=== PATIENT | male | born 1940 | race Caucasian/White ===

== ENCOUNTER 2019-08-28 19:17 | Emergency (ER) | payer MEDICARE, SELFPAY ==
--- NOTE | ~2019-08-28 | CT_ITS ---
EXAMINATION: CTA chest abdomen pelvis EXAM DATE: 08/28/2019 21:23 INDICATION: Hypotension, diaphoresis. Clinical concern for dissection. TECHNIQUE: Spiral CT of the chest, abdomen and pelvis was performed following intravenous injection o f 100 mL Omnipaque 350. Axial, coronal and sagittal images were reviewed. Maximum intensity projecti on 3-D reconstructions of the arteries were created by the technologist on dedicated workstation. C oronal maximum intensity pixel images of chest reviewed. The dose-length product (DLP) for this exam ination was 1629.10 mGy-cm. The exposure was tailored according to patient size (auto mA exposure co ntrol), and iterative reconstruction (ASIR) was used as additional dose reduction technique. There i s no prior study for comparison. FINDINGS: The thoracic and abdominal aorta is normal in caliber. There is no dissection. There is mil d to moderate scattered arteriosclerotic disease. SMA, renal arteries, celiac artery, PALLAVI are widely patent. 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 CHEST: There is a 6 mm left lower lobe posterior sulcus nodule on axial image 85 without spiculation s. More likely granuloma than cancer but a follow-up low-dose chest CT is recommended in 6 months. Mi ld dependent atelectasis. The lungs are otherwise clear. There are no pleural or pericardial effusi ons. Tracheobronchial tree is patent. There is no mediastinal, hilar or axillary lymphadenopathy. There is no pneumothorax. Cardiomegaly. There is moderate coronary arterial calcification, vernon rial sclerosis. ABDOMEN PELVIS: The liver, spleen, adrenal glands and pancreas are unremarkable. Gallbladder is unre markable. No biliary obstruction. Portal and splenic veins are patent. Kidneys enhance symmetrical ly. There is no hydronephrosis. The prostate is unremarkable. There is a 3 cm right posterolatera l bladder diverticulum. There is no retroperitoneal or pelvic lymphadenopathy. Small bilateral fat -containing inguinal hernias. The appendix is normal. The stomach and small bowel are unremarkable. There is expected amount of c olonic stool. There is mild sigmoid colonic diverticulosis. There is no adjacent inflammatory change to suggest diverticulitis. No free intraperitoneal gas. There are no osteoblastic or osteolytic l esions identified. Chronic bilateral L5 spondylolysis with grade 1 anterolisthesis L5 on S1. IMPRESSION: 1. No aortic aneurysm or dissection. No acute findings identified. 2. Left basilar nodule; recommend 6 month follow-up low-dose chest CT. 3. Small bladder diverticulum. 4. Mild sigmoid diverticulosis. 5. Cardiomegaly. Reviewed, dictated and finalized at location A. RESPIRATORY
--- NOTE | ~2019-08-28 | CT_ITS ---
EXAMINATION: CT brain wo con EXAM DATE: 08/28/2019 21:22 INDICATION: Right leg paresthesia. Hypertension, diaphoresis. TECHNIQUE: Spiral CT of the head was performed without contrast. Axial, coronal and sagittal images were reviewed. The dose-length product (DLP) for this examination was 681.00 mGy-cm. The exposure w as tailored according to patient size, and iterative reconstruction (ASIR) was used as additional dos e reduction technique. There is no prior study for comparison. FINDINGS: There is no acute intraparenchymal hemorrhage. No evidence of intraparenchymal brain mass lesion. No evidence of acute infarction. Please note that initial head CT has limited sensitivity f or small or acute infarctions. There is mild periventricular and subcortical hypodensity, nonspecific but probably related to small vessel ischemic disease. There is mild prominence of the sulci and v entricles related to cerebral atrophy. There is intracranial carotid arteriosclerosis. There are n o extra-axial collections. There is no mass effect or midline shift. The orbits are unremarkable. Soft tissue is unremarkable. The visualized sinuses and mastoid air cells are well aerated. IMPRESSION: 1. No acute intracranial findings. 2. Chronic age related findings. Reviewed, dictated and finalized at location A. COATER
[2019-08-28 19:13] VITALS: BP 163/102; PULSE 89; RESP 18; TEMP 36.6; O2SAT 98
--- NOTE | 2019-08-28 20:00 | ED.RECABL ---
HPI - Recheck/Abnormal Lab/Rx General Chief Complaint: Recheck/Abnormal Lab/Rx Stated Complaint: htn/ leg tingling Time Seen by Provider: 08/28/19 19:58 Source: patient and RN notes reviewed Mode of arrival: EMS Limitations: no limitations History of Present Illness HPI narrative: Pt is an 79 y/o male presenting to the ED via EMS c/o HTN. Pt states he started experiencing diaphoresis and generalized weakness, and RLE tingling and numbness at around 1500 this afternoon. Pt notes he took his BP when he got home after these Sx's presented and notes it was 200/150. Pt notes he usually takes his Metoprolol and Losartan at around 2000, but states he took both medications early at 1400. Pt notes his BP came down after the medications started working and he calmed himself down. Pt denies CP, back pain, jaw pain, neck pain, ABD pain, SOB, N/V, TREJO, visual changes, or slurred speech. Pt notes he rode his stationary bike and worked out this morning and felt fine at the time. Pt reports he has Hx's of A Fib in which he is currently taking Eliquis for, CVA, Hypothyroid, BPH, lt total knee replacement, and arthritis. Pt states he sees Dr. Jax Bowling as his PCP at [facility], Dr. Spear as his Jewel Flat Surfacer at [facility], and is also seeing an Museum Host/Hostess for his thryoid problems. Initial visit (ago): hour(s) (5) Description of abnormal result: BP 200/150 at home Associated symptoms: other (Diaphoresis; RLE tingling; RLE numbness; Generalized weakness) Related Data Allergies Allergy/AdvReac Type Severity Reaction Status Date / Time warfarin [From Coumadin] Allergy Rash Verified 08/28/19 19:22 Review of Systems Review of Systems: All systems reviewed & are unremarkable except as noted in HPI and below Constitutional: Constitutional: Reports weakness (Generalized) Eyes: Eyes: Denies change in vision Cardiovascular: Cardiovascular: Denies chest pain and Reports diaphoresis Respiratory: Respiratory: Denies dyspnea Gastrointestinal: Gastrointestinal: Denies abdominal pain, Denies nausea and Denies vomiting Musculoskeletal: Musculoskeletal: Denies back pain, Denies neck pain and Denies other (Jaw pain) Neurologic: Denies Abnormal speech present (Slurred speech), Denies headache(s), Reports numbness (RLE) and Reports tingling (RLE) [facility] Past Medical History Medical History A-fib Arthritis BPH (benign prostatic hyperplasia) CVA (cerebral vascular accident) Hypothyroid Surgical History Surgical History History of total left knee replacement Social History Social History Smoking status: Never smoker Gender identity (if verbalized by the patient): Male Exam Const: General: cooperative, no acute distress and alert Nutritional Appearance: well nourished Orientation/consciousness: patient oriented x3 Limitations: no limitations HENMT: Mouth: Yes lip normal and Yes moist mucous membranes Resp: Effort & Inspection: normal respiratory effort Auscultation: clear to auscultation bilaterally Cardio: Rate: regular rate Rhythm: regular rhythm Peripheral pulses: dorsalis pedis present (2+) GI: GI Palp: Yes Soft to palpation and No Tenderness to palpation present (GI) Auscultation: normal bowel sounds Skin: General skin exam: normal color Neuro: General: patient oriented x3 and CN's II-XI intact bilaterally Cranial nerves: Yes Normal facial strength present ([place] facial droop of rt sided face) Cognition (Neuro): normal cognition Speech: normal speech Motor exam (neuro): 5/5 motor strength present throughout Sensory Exam: normal sensation Extrem: General: normal to inspection, full ROM and no clubbing, cyanosis or edema Psych: Mental Status: mental status grossly normal Affect: normal affect Attitude: cooperative Course Course Emergency Course: Patient with no acute findings on imaging to account for hi
--- NOTE | 2019-08-28 20:12 | ECG_ITS ---
Measurements Intervals [place] Rate: 91 P: [place]: 0 QRS: -1 QRSD: 101 T: 53 QT: 344 QTc: 424 Interpretive Statements ATRIAL FIBRILLATION CANNOT RULE OUT SEPTAL INFARCT, AGE INDETERMINATE BASELINE ARTIFACT- I, II, AVR ABNORMAL ECG Electronically Signed On 08-29-2019 8:20:32 CDT by Luis Enrique Zaragoza D.O.
[2019-08-28 20:37] LABS: Basophils Percent Auto 0.5 % (0.2-1.2); Eosinophils Percent Auto 0.3 % (0-4.4); Hematocrit 40.4 % (42.0-52.0); Hemoglobin 13.7 g/dL (14.0-18.0); Immature Granulocyte Absolute 0.01 K/mm3 (0.00-0.031); Immature Granulocyte Percent A 0.2 % (0-0.5); Lymphocytes Absolute Auto 1.29 K/mm3 (0.9-3.2); Lymphocytes Percent Auto 21.6 % (18.3-44.2); Mean Corpuscular HGB Conc 33.9 g/dl (32-36); Mean Corpuscular Hemoglobin 33.7 pg (26-34); Mean Corpuscular Volume 99.3 fl (80-100); Mean Platelet Volume 10.7 fl (7.4-10.4); Monocytes Absolute Auto 0.6 K/mm3 (0.1-0.6); Monocytes Percent Auto 9.7 % (2.6-8.5); Neutrophils Absolute Auto 4.1 K/mm3 (1.3-6.7); Neutrophils Percent Auto 67.7 % (45.5-73.1); Platelet Count Result 134 k/mm3 (150-375); Red Blood Count 4.07 M/mm3 (4.6-6.20); Red Cell Distribution Width 13.1 % (11.5-14.5)
[2019-08-28 20:39] VITALS: BP 144/81; PULSE 79; RESP 18; O2SAT 100
[2019-08-28 20:46] LABS: INR 1.1; Prothrombin Time 13.4 Seconds (11.1-14.7)
[2019-08-28 20:47] LABS: Partial Thromboplastin Time 28.6 SECONDS (22.3-36.8)
[2019-08-28 20:48] LABS: Alanine Aminotransferase 42 U/L (4-50); Albumin Level 4.1 g/dL (3.5-5.1); Alkaline Phosphatase 67 U/L (38-126); Aspartate Amino Transferase 38 U/L (17-59); Blood Urea Nitrogen 24 mg/dL (9-20); Calcium 8.8 mg/dL (8.4-10.2); Carbon Dioxide 28 mmol/L (22-30); Chloride 98 mmol/L (98-107); Estimated CRCL calculation 91 ml/min; Estimated Glomerular Filt Rate > 60; Glucose 101 mg/dL (75-110); Potassium 4.4 mmol/L (3.4-5.0); Sodium 132 mmol/L (137-145)
[2019-08-28 21:00] LABS: Troponin I < 0.012 ng/mL (0.000-0.034)
[2019-08-28 21:26] LABS: Add Urine Microscopic? YES; Appearance Urine Clear (Clear); Bilirubin Urine Negative (Negative); Blood Urine Negative (Negative); Color Urine Yellow (Yellow); Glucose Urine UA Negative (Negative); Ketones Urine Trace mg/dL (Negative); Leukocyte Esterase Ur Negative LEU/UL (Negative); Nitrate Urine Negative (Negative); Protein Urine Negative (Negative); Specific Grav Ur 1.011 (1.001-1.035); Urobilinogen Urine Negative mg/dL (<2.0); WBC Urine 0-3 /hpf
[2019-08-28 21:56] LABS: Folic Acid > 20.0 ng/mL (2.76->20)
[2019-08-28 22:59] VITALS: BP 148/86; PULSE 70; RESP 16; O2SAT 99
== END 2019-08-28 23:00 | disposition home or self-care (01) ==
PROVIDERS: Emergency Provider Emergency Medicine
DX: R20.2 Paresthesia of skin (principal); I10 Essential (primary) hypertension; I48.91 Unspecified atrial fibrillation; Z79.01 Long term (current) use of anticoagulants; M19.90 Unspecified osteoarthritis, unspecified site; N40.0 Benign prostatic hyperplasia without lower urinary tract symptoms; Z86.73 Personal history of transient ischemic attack (TIA), and cerebral infarction without residual deficits; E03.9 Hypothyroidism, unspecified; Z96.652 Presence of left artificial knee joint; R91.1 Solitary pulmonary nodule; K57.30 Diverticulosis of large intestine without perforation or abscess without bleeding; I51.7 Cardiomegaly; R94.31 Abnormal electrocardiogram [ECG] [EKG]
CPT/HCPCS: 36415; 70450; 71275; 74174; 80053; 81001; 82607; 82746; 84439; 84443; 84480; 84484; 85025; 85610; 85730; 93005; 99284; Q9967

== ENCOUNTER 2020-06-24 17:10 | Observation (INO) | payer MEDICARE, SELFPAY ==
[2020-06-24] VITALS (30 sets, daily range): BP systolic 139–184; BP diastolic 77–106; PULSE 68–98; RESP 0–23; TEMP 36.6; O2SAT 95–100; BMI 33.9
--- NOTE | ~2020-06-24 | XR_ITS ---
EXAMINATION: XR chest 1V INDICATION: Dizziness and hypertension TECHNIQUE: AP view of the chest is obtained. COMPARISON: None available FINDINGS: There are patchy opacities of the lung bases and left midlung zone. No definite pleural eff usion or pneumothorax is identified. The heart size is upper limits of normal for technique. IMPRESSION: 1. Patchy opacities of the lung bases and left midlung zone, consistent with atelectasis versus pneum onia. Reviewed, dictated and finalized at location A. DIAN FAMILY MEMBER IMPRESSION: 1. Patchy opacities of the lung bases and left midlung zone, consistent with at electasis versus pneumonia.
--- NOTE | ~2020-06-24 | CT_ITS ---
EXAMINATION: CT brain wo con INDICATION: Dizziness COMPARISON: 08/28/2019 TECHNIQUE: Standard unenhanced head CT. The dose-length product (DLP) was 605.33 mGy-cm. The mA was a djusted according to patient size. Iterative reconstruction technique was employed. FINDINGS: There is no acute intraparenchymal hemorrhage. No evidence of mass lesion. No evidence of a cute infarction. There is mild periventricular and subcortical hypodensity probably related to small vessel ischemic disease. There is mild prominence of the sulci and ventricles related to cerebral atr ophy. Intracranial calcified cerebral atherosclerosis is noted. There are no extra-axial collections. There is no mass effect or midline shift. Changes in the globes are likely from ocular lens surgery. The visualized sinuses and mastoid air cells are well aerated. IMPRESSION: 1. No acute intracranial abnormality. 2. Age related findings. Reviewed, dictated and finalized at location A. RECONCILIATION SPECIALIST
--- NOTE | ~2020-06-24 | MR_ITS ---
EXAMINATION: MR brain/brain stem wo/w con DATE: 06/25/2020 08:11 INDICATION: Transient ischemic episode with improving dizziness and numbness and tingling at the bila teral hands and feet. TECHNIQUE: Magnetic resonance imaging (MRI) of the brain and brainstem was performed without and with 20 mL Multihance intravenous contrast. Sequences included sagittal and axial T1-weighted SE, axial d iffusion-weighted FS SE, axial T2*-weighted GRE, axial T2-weighted FLAIR, and axial T2-weighted FSE. Postcontrast axial and coronal T1-weighted SE was obtained. Apparent diffusion coefficient (ADC) maps were created. COMPARISON: Head CT dated 06/24/2020 FINDINGS: Small old lacunar infarct in the right peritrigonal white matter. There are no areas of restricted di ffusion to suggest acute infarction. No intracranial hemorrhage or abnormal intracranial mass lesion. There is minimal scattered nonspecific increased T2-weighted signal intensity in the cerebral white matter, predominantly involving the deep and periventricular white matter which is within normal limi ts for age. There are no intraparenchymal signal abnormalities seen on the other pulse sequences. The ventricles are symmetric and normal in size. There are no abnormal extra-axial fluid collections. Fl ow voids are seen in the cerebral arteries on the T2-weighted sequences consistent with their expecte d patency. Changes of bilateral intraocular lens replacement. Trace right mastoid effusion. Visualize d orbits and soft tissues are unremarkable. There are no areas of abnormal enhancement on the post co ntrast images. IMPRESSION: 1. No acute intracranial process or abnormally enhancing brain lesions. 2. Aging brain with small old lacunar infarct in the right peritrigonal white matter. Reviewed, dictated and finalized at location A. SQL DBA IMPRESSION: 1. No acute intracranial process or abnormally enhancing brain lesions. 2. Aging brain with small old lacunar infarct in the right peritrigonal white m atter.
--- NOTE | ~2020-06-24 | US_ITS ---
EXAMINATION: US carotid duplex BI DATE: 06/25/2020 09:37 INDICATION: Transient ischemic attack, dizziness TECHNIQUE: Grayscale, color Doppler, and pulsed Doppler images of the cervical carotid arteries were obtained. The degree of vessel stenosis is placed in one of the following categories: normal, <50%, 5 0-69%, >=70% but less than near-occlusion, near-occlusion, or total occlusion. Note that percent sten osis relative to normal distal artery lumen diameter is indirectly measured from velocity measurement s as described by Jorje, et al. Radiology 2003; 229:340-346. COMPARISON: None. FINDINGS: RIGHT: The right common carotid artery (CCA) peak systolic velocity (PSV) is 60 cm/s. The right internal car otid artery (ICA) PSV is 68 cm/s. The right ICA end-diastolic velocity (EDV) is 12 cm/s. The right IC A/CCA PSV ratio is 1.1. Grayscale and color Doppler images yield an estimate of less than 50% diamete r reduction from plaque in the ICA. The external carotid artery (ECA) PSV is 70 cm/s. There is antegr alyx flow in the right vertebral artery. LEFT: The left CCA PSV is 59 cm/s. The left ICA PSV is 55 cm/s. The left ICA EDV is 18 cm/s. The left ICA/C CA PSV ratio is 0.9. Grayscale and color Doppler images yield an estimate of less than 50% diameter r eduction from plaque in the ICA. The ECA PSV is 82 cm/s. There is antegrade flow in the left vertebra l artery. IMPRESSION: 1. <50% stenosis in the right internal carotid artery. 2. <50% stenosis in the left internal carotid artery. Reviewed, dictated and finalized at location A. LITY SPECIALIST
--- NOTE | ~2020-06-24 | CT_ITS ---
EXAMINATION: CT soft tissue neck wo con DATE: 06/27/2020 09:51 INDICATION: Left face and neck discomfort and swelling. TECHNIQUE: Computed tomography (CT) of the neck was performed without intravenous contrast. Automated exposure control and iterative reconstruction technique were employed. The dose-length product was 5 76.79 mGy-cm. COMPARISON: None FINDINGS: There are no pathologically enlarged lymph nodes. The parotid glands are normal. There is n o sialolith. The mastoid air cells are normal. The paranasal sinuses are clear. There is severe cervi buddy spondylosis. IMPRESSION: 1. No etiology for the patient's symptoms. Reviewed, dictated and finalized at location A. T PIECE HANDLER
--- NOTE | ~2020-06-24 | MR_ITS ---
EXAMINATION: MR cervical spine wo con DATE: 06/26/2020 08:12 INDICATION: Cervical myelopathy. TECHNIQUE: Magnetic resonance imaging (MRI) of the cervical spine was performed without intravenous c ontrast. Sequences included sagittal T2-weighted FSE, sagittal STIR FSE, sagittal T1-weighted FSE, ax ial MERGE, and axial T2-weighted FSE. COMPARISON: None FINDINGS: There is 2 mm retrolisthesis of C4 on C5 and C6 on C7 and 2 mm anterolisthesis of C7 on T1. Vertebral body heights are normal. There is moderately decreased disc height at C2-C3 and C4-C5, mil dly decreased disc height at C5-C6, and severely decreased disc height at C6-C7. There is interbody f usion at C6-C7. The spinal cord signal intensity is normal. The following disc levels are specificall y discussed: C2-C3: There is a central extrusion. There is severe bilateral uncovertebral joint osteoarthritis. Th ere is severe bilateral facet joint osteoarthritis. There is moderate bilateral neural foraminal sten osis. There is mild central canal stenosis. C3-C4: There is a central extrusion. There is severe bilateral uncovertebral joint osteoarthritis. Th ere is severe bilateral facet joint osteoarthritis. There is moderate bilateral neural foraminal sten osis. There is mild central canal stenosis with ventral indentation of the spinal cord. C4-C5: The disc is bulging. There is severe bilateral uncovertebral joint osteoarthritis. There is se sidra bilateral facet joint osteoarthritis. There is severe bilateral neural foraminal stenosis. There is moderate central canal stenosis with ventral and dorsal indentation of the spinal cord. C5-C6: The disc is bulging. There is moderate bilateral uncovertebral joint osteoarthritis. There is severe bilateral facet joint osteoarthritis. There is mild right and moderate left neural foraminal s tenosis. There is mild central canal stenosis with ventral indentation of the spinal cord. C6-C7: There is severe bilateral uncovertebral joint hypertrophy. There is mild bilateral facet joint osteoarthritis. There is mild bilateral neural foraminal stenosis. There is mild central canal steno sis with ventral indentation of the spinal cord. C7-T1: The disc does not extend beyond the endplate margin. There is mild bilateral uncovertebral brenda nt osteoarthritis. There is severe bilateral facet joint osteoarthritis. There is mild bilateral neur al foraminal stenosis. There is no central canal stenosis. IMPRESSION: 1. Severe cervical spondylosis. Reviewed, dictated and finalized at location A. POLISHER
--- NOTE | ~2020-06-24 | US_ITS ---
EXAMINATION:US venous doppler LE BI INDICATION:Lower extremity heaviness with edema TECHNIQUE: Multiple grayscale, color flow and Doppler images of the right and left lower extremity de ep venous systems were obtained and reviewed. COMPARISON:No prior studies for comparison. FINDINGS: The common femoral, superficial femoral and popliteal veins demonstrate normal respiratory variation, augmentation and compressibility. Color flow is also seen within the posterior tibial, pe roneal, greater saphenous and profunda veins. IMPRESSION: 1: No lower extremity deep venous thrombosis. Reviewed, dictated and finalized at location A. RMATION SCIENTIST
--- NOTE | 2020-06-24 17:16 | ECG_ITS ---
Measurements Intervals [place] Rate: 80 P: [place]: 0 QRS: -7 QRSD: 86 T: 52 QT: 353 QTc: 408 Interpretive Statements ATRIAL FIBRILLATION CANNOT RULE OUT SEPTAL INFARCT, AGE INDETERMINATE ABNORMAL ECG Electronically Signed On 06-24-2020 17:57:00 DAY SPA MANAGER by Luis Enrique Zaragoza D.O.
[2020-06-24 17:40] LABS: Basophils Percent Auto 0.7 % (0.2-1.2); Eosinophils Absolute Auto 0.1 K/mm3 (0-0.3); Eosinophils Percent Auto 1.6 % (0-4.4); Hematocrit 40.2 % (42.0-52.0); Hemoglobin 13.6 g/dL (14.0-18.0); Immature Granulocyte Absolute 0.03 K/mm3 (0.00-0.031); Immature Granulocyte Percent A 0.5 % (0-0.5); Lymphocytes Absolute Auto 1.46 K/mm3 (0.9-3.2); Lymphocytes Percent Auto 25.7 % (18.3-44.2); Mean Corpuscular HGB Conc 33.8 g/dl (32-36); Mean Corpuscular Hemoglobin 33.7 pg (26-34); Mean Corpuscular Volume 99.5 fl (80-100); Mean Platelet Volume 10.6 fl (7.4-10.4); Monocytes Absolute Auto 0.5 K/mm3 (0.1-0.6); Neutrophils Absolute Auto 3.6 K/mm3 (1.3-6.7); Neutrophils Percent Auto 62.5 % (45.5-73.1); Platelet Count Result 153 k/mm3 (150-375); Red Blood Count 4.04 M/mm3 (4.6-6.20); Red Cell Distribution Width 13.4 % (11.5-14.5); White Blood Count 5.7 K/mm3 (4.5-10.0)
[2020-06-24 17:53] LABS: Anion Gap 3 mmol/L (8-16); Blood Urea Nitrogen 18 mg/dL (9-20); Calcium 9.1 mg/dL (8.4-10.2); Carbon Dioxide 31 mmol/L (22-30); Chloride 101 mmol/L (98-107); Estimated CRCL calculation 81 ml/min; Estimated Glomerular Filt Rate > 60; Glucose 109 mg/dL (75-110); Potassium 4.7 mmol/L (3.4-5.0); Sodium 135 mmol/L (137-145)
[2020-06-24 18:23] LABS: Alanine Aminotransferase 34 U/L (4-50); Albumin Level 4.1 g/dL (3.5-5.1); Alkaline Phosphatase 97 U/L (38-126); Aspartate Amino Transferase 43 U/L (17-59); Bilirubin,Total 0.9 mg/dL (0.2-1.3)
[2020-06-24 18:35] LABS: Troponin I < 0.012 ng/mL (0.000-0.034)
[2020-06-24 18:42] LABS: Partial Thromboplastin Time 30.3 SECONDS (22.3-36.8)
--- NOTE | 2020-06-24 19:04 | ED.GENADULT ---
HPI - General Adult General Chief complaint: Dizziness Stated complaint: near syncope Time Seen by Provider: 06/24/20 18:06 Source: patient, family and EMS Mode of arrival: EMS Limitations: no limitations History of Present Illness HPI narrative: Patient is 80 years old white male came to the emergency room by ambulance because sudden onset of dizziness, tingling and numbness of the hands and feet started while sitting in the latter-day. Lasted for about 1 hour. History of atrial fibrillation on Eliquis. Currently patient feeling much better. Patient reports that he was about to black out while sitting in the chair. Patient denies any focal neuro deficits. Patient denies any fever, chills, nausea, vomiting, shortness of breath, coughing, chest pain or exposure to anybody with COVID-19. Related Data Home Medications Medication Instructions Recorded Confirmed alendronate-vitamin D3 1 tablet PO WEEKLY 06/24/20 apixaban [Eliquis] 5 mg PO BID 06/24/20 finasteride 5 mg PO DAILY 06/24/20 ketoconazole 1 applic TOPICAL BID 06/24/20 losartan 100 mg PO DAILY 06/24/20 metoprolol succinate 100 mg PO DAILY 06/24/20 metoprolol tartrate 25 mg PO DAILY 06/24/20 tamsulosin 0.4 mg PO HS 06/24/20 Allergies Allergy/AdvReac Type Severity Reaction Status Date / Time Digitalis Glycosides Allergy Unknown Verified 06/24/20 17:23 shellfish derived Allergy Unknown Verified 06/24/20 17:23 warfarin [From Coumadin] Allergy Rash Verified 08/28/19 19:22 Review of Systems Review of Systems: Narrative: CONSTITUTIONAL: Denies fever, chills, or sweats. EYES: Denies visual changes, redness, or discharge. ENT: Denies rhinorrhea, congestion, sore throat, or otalgia. CARDIOVASCULAR: Denies chest pain, palpitations, or edema. RESPIRATORY: Denies cough or dyspnea. GASTROINTESTINAL: Denies abdominal pain, nausea, vomiting, or diarrhea. GENITOURINARY: Denies dysuria or hematuria. SKIN: Denies rash or itching. MUSCULOSKELETAL: Denies back pain, joint pain, or myalgia. NEUROLOGIC: Denies headache, numbness, or weakness. PSYCHIATRIC: Denies anxiety or depression. [facility] Past Medical History Medical History (Updated 06/24/20 @ 19:09 by Juana Gamble MD) A-fib Arthritis BPH (benign prostatic hyperplasia) CVA (cerebral vascular accident) Hypothyroid Surgical History Surgical History History of total left knee replacement Social History Social History Smoking status: Never smoker Gender identity (if verbalized by the patient): Male Exam Narrative: Exam Narrative: General appearance: Well-developed, well-nourished Skin: Normal color Head: Normocephalic, nontraumatic Eyes: Clear conjunctiva ENT: Oropharynx normal, ears normal, nose normal Neck: Supple, nontender Chest and respiratory: Airway patent, no respiratory distress, no accessory muscle use Heart: Regular rate/rhythm Abdomen: Soft, nontender, no organomegaly, quiet bowel sounds Vascular: Normal peripheral pulses, normal capillary refill. Musculoskeletal: Normal range of motion, nontender back Neurologic: Alert and oriented ?3, CARRIER LOADER is normal as tested, no gross motor deficit. Patient had chronic right facial drooping Course Course Emergency Course: Improved Consultations Consultation #1: DR JEFF Date: 06/24/20 Time: 19:26 Vital Signs Vital signs: Vital Signs Pulse Rate 83 06/24/20 17:12 Respiratory Rate 14 06/24/20 17:12 Blood Pressure 182/106 H 06/24/20 17:12 Pulse Oximetry 99 06/24/20 17:12 Pulse Rate 84 06/24/20 18:33 Respiratory Rate 20 06/24/20 18:33 Blood Pressure
[2020-06-24] MEDS: ASPIRIN 81 MG CHEWABLE TABLET 324 MG PO (19:43)
--- NOTE | 2020-06-24 21:35 | PC.NURSE ---
This patient, Brian Mcmahon Jr., was admitted to 3 [facility] Surg Room 316-01. Patient/family oriented to hospital policies and general routines including ID bracelet, bed and alarms, visiting hours, pain management, procedures, bathroom and other care routines, personal items, smoking policy, room service/diet, and visiting hours. Information on how to activate the Rapid Response Team has been discussed. Patient/Family are encouraged to report perceived risks to care and to ask questions if they do not understand what they are told or what they should do.
--- NOTE | 2020-06-24 22:48 | PM.IMHP ---
H&P: HPI History of Present Illness Date/Time: 06/24/20 22:48 Chief Complaint: syncope Narrative: this is a pleasant 80-year-old male with known history of paroxysmal atrial fibrillation on chronic Eliquis therapy, hypothyroidism, and hypertension who presented to the hospital today with a complaint of sudden onset of dizziness and tingling of his hands and feet. The patient relates that he has had similar symptoms since [place] but usually the only last for a few moments. Associated symptoms today included nausea and shortness of breath but no vomiting. Today the patient believes that his symptoms lasted less than half an hour in duration and have completely resolved. On further questioning he also reports that he had some right lower leg cramping pain which has also completely resolved. The patient was very concerned today as he felt like he might pass out. His symptoms occurred while he was simply sitting in denominational and was not doing any type of exertional activity. He denies any recent fever, coughing, neck stiffness, chest pain, palpitations, abdominal pain, dysuria, hematuria, diarrhea, rectal bleeding, LE swelling, double vision, blurry vision, slurred speech, facial droop, or focal weakness. The patient has not had any recurrent symptoms tonight in the ER. Routine labs were obtained in the ER which were unremarkable. CT brain did not demonstate any acute pathology. Neurology was consulted by ER provider who has asked that we admit the patient to the hospital and obtain an MRI brain. ER provider swabbed the patient for COVID-19 as his CXR was suspicious for possible COVID-19. Review of Systems Review of Systems: All systems reviewed & are unremarkable except as noted in HPI and below PMFSH Past Medical History Medical History A-fib Arthritis BPH (benign prostatic hyperplasia) CVA (cerebral vascular accident) HTN (hypertension) with goal to be determined Hypothyroid Surgical History Surgical History History of total left knee replacement Social History Social History Smoking packs per day: 1 Smoking cigarettes per day: 20.0 Years smoked: 5 Smoking pack-years: 5.00 Smoking status: Former smoker Tobacco type: cigarettes Alcohol intake: current Drinks per week: 12 Substance use: never Gender identity (if verbalized by the patient): Male Spiritual care concerns: No Meds Home Medications and Allergies Home Medications Medication Instructions Recorded Confirmed Type apixaban [Eliquis] 5 mg PO BID 06/24/20 06/24/20 History finasteride 5 mg PO DAILY 06/24/20 06/24/20 History glucos sul [id number] 3 cap PO DAILY 06/24/20 06/24/20 History [Glucosamine Chondroitin] ketoconazole See Rx Instructions .ROUTE .COMPLEX 06/24/20 06/24/20 History losartan 100 mg PO DAILY 06/24/20 06/24/20 History lutein 20 mg PO DAILY 06/24/20 06/24/20 History metoprolol succinate 100 mg PO QPM 06/24/20 06/24/20 History metoprolol tartrate 25 mg PO DAILY 06/24/20 06/24/20 History omega-3 fatty acids [Fish Oil 1,000 mg PO DAILY 06/24/20 06/24/20 History Concentrate] tamsulosin 0.4 mg PO HS 06/24/20 06/24/20 History cholecalciferol (vitamin D3) 50 mcg PO DAILY 06/25/20 06/25/20 History Allergies Allergy/AdvReac Type Severity Reaction Status Date / Time Digitalis Glycosides Allergy Unknown Verified 06/24/20 17:23 shellfish derived Allergy Hives Verified 06/24/20 23:11 tree and shrub pollen Allergy Sneezing Verified 06/24/20 23:11 warfarin [From Coumadin] Allergy Rash Verified 08/28/19 19:22 Vital Signs Vital Signs - 24 hr 06/24/20 17:12 06/24/20 17:15 06/24/20 17:17 Temperature Pulse Rate 83 87 80 Respiratory Rate 14 20 12 Blood Pressure 182/106 H 175/96 H Pulse Oximetry 99 99 99 06/24/20 17:23 06/24/20 17:24 06/24/20
[2020-06-25] VITALS (12 sets, daily range): BP systolic 121–152; BP diastolic 62–85; PULSE 62–99; RESP 16–20; TEMP 36.1–36.7; O2SAT 99–100
[2020-06-25] MEDS: METOPROLOL SUCCINATE EXT REL 100 MG TABCR PO ×2 (00:30→18:04)
[2020-06-25] MEDS: TAMSULOSIN HCL 0.4 MG CAPSULE PO ×2 (00:31→20:35)
[2020-06-25] MEDS: APIXABAN 5 MG TABLET PO ×3 (00:31→20:36)
[2020-06-25 06:22] LABS: Basophils Percent Auto 0.7 % (0.2-1.2); Eosinophils Absolute Auto 0.1 K/mm3 (0-0.3); Eosinophils Percent Auto 2.3 % (0-4.4); Hematocrit 40.8 % (42.0-52.0); Immature Granulocyte Absolute 0.01 K/mm3 (0.00-0.031); Immature Granulocyte Percent A 0.2 % (0-0.5); Lymphocytes Absolute Auto 2.05 K/mm3 (0.9-3.2); Lymphocytes Percent Auto 36.7 % (18.3-44.2); Mean Corpuscular HGB Conc 34.3 g/dl (32-36); Mean Corpuscular Hemoglobin 34.2 pg (26-34); Mean Corpuscular Volume 99.8 fl (80-100); Mean Platelet Volume 10.8 fl (7.4-10.4); Monocytes Absolute Auto 0.6 K/mm3 (0.1-0.6); Monocytes Percent Auto 10.9 % (2.6-8.5); Neutrophils Absolute Auto 2.7 K/mm3 (1.3-6.7); Neutrophils Percent Auto 49.2 % (45.5-73.1); Platelet Count Result 152 k/mm3 (150-375); Red Blood Count 4.09 M/mm3 (4.6-6.20); Red Cell Distribution Width 13.4 % (11.5-14.5); White Blood Count 5.6 K/mm3 (4.5-10.0)
[2020-06-25 06:39] LABS: Anion Gap 3 mmol/L (8-16); Blood Urea Nitrogen 14 mg/dL (9-20); Calcium 8.9 mg/dL (8.4-10.2); Carbon Dioxide 32 mmol/L (22-30); Chloride 103 mmol/L (98-107); Estimated CRCL calculation 82 ml/min; Estimated Glomerular Filt Rate > 60; Glucose 100 mg/dL (75-110); Sodium 138 mmol/L (137-145)
[2020-06-25 07:28] LABS: Thyroid Stimulating Hormone Reflex 0.554 uIU/mL (0.465-4.68)
[2020-06-25] MEDS: LOSARTAN POTASSIUM 100 MG TABLET PO (09:32)
[2020-06-25] MEDS: ASPIRIN 81 MG CHEWABLE TABLET PO (09:32)
[2020-06-25] MEDS: OMEGA 3 POLYUNSAT FATTY ACIDS 1 GM CAP PO (09:32)
[2020-06-25] MEDS: FINASTERIDE 5 MG TABLET PO (09:32)
[2020-06-25] MEDS: CHOLECALCIFEROL 1,000 UNITS TABLET 2000 UNITS PO ×2 (09:33)
[2020-06-25] MEDS: METOPROLOL TARTRATE 25 MG TABLET PO (09:34)
--- NOTE | 2020-06-25 14:28 | WPDNEURCNPN ---
Assessment and Plan Assessment and plan (1) Suspected 2019 novel coronavirus infection: Code(s): Z20.822 - Contact with and (suspected) exposure to COVID-19 Status: Acute (2) HTN (hypertension) with goal to be determined: Code(s): I10 - Essential (primary) hypertension Status: Acute (3) A-fib: Qualifiers: Atrial fibrillation type: paroxysmal Qualified Code(s): I48.0 - Paroxysmal atrial fibrillation Code(s): I48.91 - Unspecified atrial fibrillation Status: Chronic (4) Brain TIA: Code(s): G45.9 - Transient cerebral ischemic attack, unspecified Status: Acute (5) Cervical myelopathy: Code(s): G95.9 - Disease of spinal cord, unspecified Status: Acute Additional Plan Considering the complains of numbness and tingling in upper and lower extremities will obtain the MRI of cervical spine to rule out the possibility of cervical myelopathy other evaluation treatment will be continued as such Consult date: 06/25/20 Time Seen: 14:00 HPI: Brian Medellin Salome Pope is a 80 year old male 80 years old has been admitted to the hospital with ongoing diagnosis of 1. Atrial fibrillation for which he is on chronic Eliquis therapy 2. Hypothyroidism 3. Hypertension he complained of sudden onset of dizziness and tingling sensation in his hands and feet he has had a similar symptomatology around [place] for few moments at this time the symptomatology lasted for less than half an hour he also complained of right lower extremity cramping pain with subsequently completely resolved initial CT scan the brain in the emergency room was negative with no evidence of bleed or space-occupying lesion his x-ray of the chest was suspicious for possible COVID-19 the testing is pending as mentioned before he has ongoing history of atrial fibrillation arthritis benign prostatic hypertrophy hypertension and hypo thyroidism. UA jaimes up until now included the MRI of the brain which is negative and Doppler studies pending Review of Systems Review of Systems: All systems reviewed & are unremarkable except as noted in HPI and below PMFSH Past Medical History Medical History A-fib Arthritis BPH (benign prostatic hyperplasia) CVA (cerebral vascular accident) HTN (hypertension) with goal to be determined Hypothyroid Surgical History Surgical History History of total left knee replacement Social History Social History Smoking packs per day: 1 Smoking cigarettes per day: 20.0 Years smoked: 5 Smoking pack-years: 5.00 Smoking status: Former smoker Tobacco type: cigarettes Alcohol intake: current Drinks per week: 12 Substance use: never Gender identity (if verbalized by the patient): Male Spiritual care concerns: No Meds Home Medications and Allergies Home Medications Medication Instructions Recorded Confirmed Type apixaban [Eliquis] 5 mg PO BID 06/24/20 06/24/20 History finasteride 5 mg PO DAILY 06/24/20 06/24/20 History glucos sul [id number] 3 cap PO DAILY 06/24/20 06/24/20 History [Glucosamine Chondroitin] ketoconazole See Rx Instructions .ROUTE .COMPLEX 06/24/20 06/24/20 History losartan 100 mg PO DAILY 06/24/20 06/24/20 History lutein 20 mg PO DAILY 06/24/20 06/24/20 History metoprolol succinate 100 mg PO QPM 06/24/20 06/24/20 History metoprolol tartrate 25 mg PO DAILY 06/24/20 06/24/20 History omega-3 fatty acids [Fish Oil 1,000 mg PO DAILY 06/24/20 06/24/20 History Concentrate] tamsulosin 0.4 mg PO HS 06/24/20 06/24/20 History cholecalciferol (vitamin D3) 50 mcg PO DAILY 06/25/20 06/25/20 History Allergies Allergy/AdvReac Type Severity Reaction Status Date / Time Digitalis Glycosides Allergy Unknown Verified 06/24/20 17:23 shellfish derived Allergy Hives Verified 06/24/20 23:11 tree and shrub pollen A
--- NOTE | 2020-06-25 15:14 | PM.IMPN ---
Progress Note: A&P Assessment and Plan (1) Near syncope: Code(s): R55 - Syncope and collapse Status: Acute Assessment and Plan: He noted lightheadedness with near syncope. He received gentle IV fluids which were discontinued as he is tolerating PO intake well. Orthostatic BP is negative for orthostatic hypotension. TSH is normal at 0.554. Carotid doppler US was ordered and pending. Echocardiogram is ordered and pending. Continue fall precautions Await results of echocardiogram and carotid doppler US (2) Numbness: Code(s): R20.0 - Anesthesia of skin Status: Acute Assessment and Plan: Stocking/glove distribution which suggests peripheral neuropathy. Vitamin B12 and folate are sufficient. Neurology is consulted and following for further recommendations and management. MRI brain was performed and demonstrates no acute findings. There is evidence of small old lacunar infarct in the right peritrigonal white matter. Symptoms have resolved at this time. He does drink alcohol so it is possible that this could be contributing. Check hemoglobin A1c, HIV testing Encourage alcohol cessation Further input per neurology (3) A-fib: Qualifiers: Atrial fibrillation type: paroxysmal Qualified Code(s): I48.0 - Paroxysmal atrial fibrillation Code(s): I48.91 - Unspecified atrial fibrillation Status: Chronic Assessment and Plan: Chronic. Rate controlled. Telemetry was reviewed and demonstrates atrial fibrillation with episodes of bradycardia and pauses from 2-3 seconds. Continue metoprolol (4) Hypothyroid: Qualifiers: Hypothyroidism type: other Qualified Code(s): E03.8 - Other specified hypothyroidism Code(s): E03.9 - Hypothyroidism, unspecified Status: Chronic Assessment and Plan: TSH 06/25/19 is 0.554. He notes this was induced by amiodarone which he was on 2 years ago but has not been on thyroid replacement therapy for 2 years. Continue follow-up outpatient (5) BPH (benign prostatic hyperplasia): Qualifiers: Lower urinary tract symptom presence: unspecified whether lower urinary tract symptoms present Qualified Code(s): N40.0 - Benign prostatic hyperplasia without lower urinary tract symptoms Code(s): N40.0 - Benign prostatic hyperplasia without lower urinary tract symptoms Status: Chronic Assessment and Plan: Chronic with no acute issues. Continue flomax and finasteride (6) Suspected 2019 novel coronavirus infection: Code(s): Z20.822 - Contact with and (suspected) exposure to COVID-19 Status: Acute Assessment and Plan: CXR demonstrates patchy opacities of the lung bases and left midlung zone. He is not haviny any significant symptoms. He is on room air. Continue droplet isolation and supportive care. COVID-19 results pending. (7) Bradycardia: Code(s): R00.1 - Bradycardia, unspecified Status: Acute Assessment and Plan: Bradycardia was noted on telemetry monitoring with occasional pause for 2-3 seconds. Metoprolol tartrate was listed on his medication list but he actually takes metoprolol succinate so I will change this to his regular regimen and continue to monitor telemetry. Continue telemetry monitoring Adjust metoprolol as needed (8) Alcohol use: Code(s): Z72.89 - Other problems related to lifestyle Status: Acute Assessment and Plan: He relates that he drinks 1-2 glasses of wine per day 5-6 days per week. He has no symptoms of withdrawal at this time. Will monitor with CIWA Alcohol use may be contributing to peripheral neuropathy Subjective Date/time seen: 06/25/20 15:15 Mr. Mcmahon is an 80 y.o. male with PMH significant for atrial fibrillation on eliquis, BPH, and hypertension who is seen in follow-up for an episode of dizziness and tingling in the hands and feet bilateral
[2020-06-25 20:47] LABS: SARS-CoV-2 RNA PCR Negative
[2020-06-26] VITALS (14 sets, daily range): BP systolic 136–162; BP diastolic 75–98; PULSE 61–152; RESP 18–20; TEMP 36–36.4; O2SAT 99–100
--- NOTE | 2020-06-26 | ECHO_ITS ---
Patient Info Name: Brian Mcmahon Age: 80 years : 1940 Gender: Male Ht: 72 in Wt: 250 lbs BSA: 2.44 m2 HR: 88 bpm BP: 162 / 98 mmHg Heart Rhythm: Atrial Fibrillation Technical Quality: Good Exam Date: 06/26/2020 9:24 AM Exam Location: [facility] Pulmonary Exam Room: [facility] Patient Status: Inpatient Admit Date: 06/24/2020 Staff Ordering Physician: Li Adams PA-C Bundle Clerk: Kathryn Cadena RDCS Attending Provider: Li Adams PA-C Referring Physician: Bryan SOFIA; Exam Type: CA echo doppler w bubble study Study Info Indications - TIA SYMPTOMS Complete two-dimensional, color flow and Doppler transthoracic echocardiogram is performed with agitated saline. Contrast/Agitated Saline Contrast/Ag. Saline: Agitated Saline Amount: 20.00 ml Administered By: Iva Samano RN Summary 1. Normal left ventricular size with good systolic function. 2. Biatrial dilation right greater than left. 3. Tricuspid valve regurgitation with velocities indicating moderately elevated pulmonary artery pressure. 4. Mild aortic valve sclerosis and trivial mitral regurgitation. 5. Agitated saline contrast demonstrates no evidence of intracardiac shunt. 6. Atrial fibrillation. Left Ventricle Left ventricular chamber dimension is normal. Left ventricular systolic function is normal, estimated at 60-65%. Right Ventricle Right ventricular chamber dimension is normal. Left Atria Left atrial chamber dimension is moderately enlarged. Right Atria Right atrial chamber dimension is severely enlarged. Atrial Septum Intact interatrial septum visualized by agitated saline imaging. Aortic Valve The aortic valve is trileaflet. There is mild aortic valve sclerosis. Pulmonic Valve The pulmonic valve is not well visualized. Mitral Valve The mitral valve has normal leaflets. Tricuspid Valve The tricuspid valve leaflets are normal. There is mild to moderate tricuspid valve regurgitation. Moderate pulmonary hypertension, estimated pulmonary arterial systolic pressure is 45 mmHg. Pericardium/Pleural The pericardium appears normal. Aorta The aortic root size at the sinus of Valsalva is normal. Left Ventricular Outflow Tract Name Value Normal LVOT 2D LVOT Diameter 2.1 cm LVOT Doppler LVOT Peak Gradient 5 mmHg LVOT Mean Gradient 4 mmHg LVOT VTI 25 cm LVOT VTI/AV VTI Ratio 0.5 LVOT Stroke Volume 89 ml LVOT CO 20.0 l/min LVOT CI 8.6 l/min/m2 Pulmonic Valve Name Value Normal PV Doppler PV Peak Gradient 2 mmHg PV Regurgitation Dop
[2020-06-26 06:59] LABS: Basophils Percent Auto 0.7 % (0.2-1.2); Eosinophils Absolute Auto 0.1 K/mm3 (0-0.3); Eosinophils Percent Auto 2.4 % (0-4.4); Hematocrit 41.5 % (42.0-52.0); Immature Granulocyte Absolute 0.01 K/mm3 (0.00-0.031); Immature Granulocyte Percent A 0.2 % (0-0.5); Lymphocytes Absolute Auto 1.71 K/mm3 (0.9-3.2); Mean Corpuscular HGB Conc 33.7 g/dl (32-36); Mean Corpuscular Hemoglobin 33.8 pg (26-34); Mean Corpuscular Volume 100.2 fl (80-100); Mean Platelet Volume 10.6 fl (7.4-10.4); Monocytes Absolute Auto 0.7 K/mm3 (0.1-0.6); Neutrophils Percent Auto 53.7 % (45.5-73.1); Platelet Count Result 154 k/mm3 (150-375); Red Blood Count 4.14 M/mm3 (4.6-6.20); Red Cell Distribution Width 13.5 % (11.5-14.5); White Blood Count 5.5 K/mm3 (4.5-10.0)
[2020-06-26 07:15] LABS: Alanine Aminotransferase 28 U/L (4-50); Albumin Level 3.7 g/dL (3.5-5.1); Alkaline Phosphatase 80 U/L (38-126); Anion Gap 4 mmol/L (8-16); Aspartate Amino Transferase 32 U/L (17-59); Bilirubin,Total 1.3 mg/dL (0.2-1.3); Blood Urea Nitrogen 12 mg/dL (9-20); Calcium 8.7 mg/dL (8.4-10.2); Carbon Dioxide 30 mmol/L (22-30); Chloride 104 mmol/L (98-107); Estimated CRCL calculation 93 ml/min; Estimated Glomerular Filt Rate > 60; Glucose 104 mg/dL (75-110); Magnesium 1.7 mg/dL (1.6-2.3); Potassium 4.1 mmol/L (3.4-5.0); Sodium 138 mmol/L (137-145)
[2020-06-26 07:53] LABS: HIV 1/2 Ab P24 Ag Result Negative (Negative)
[2020-06-26 08:56] LABS: Hemoglobin A1C 5.5 % (<5.7)
[2020-06-26] MEDS: FINASTERIDE 5 MG TABLET PO (09:59)
[2020-06-26] MEDS: ASPIRIN 81 MG CHEWABLE TABLET PO (09:59)
[2020-06-26] MEDS: OMEGA 3 POLYUNSAT FATTY ACIDS 1 GM CAP PO (09:59)
[2020-06-26] MEDS: LOSARTAN POTASSIUM 100 MG TABLET PO (09:59)
[2020-06-26] MEDS: APIXABAN 5 MG TABLET PO ×2 (09:59→20:19)
[2020-06-26] MEDS: CHOLECALCIFEROL 1,000 UNITS TABLET 2000 UNITS PO (09:59)
[2020-06-26] MEDS: METOPROLOL SUCCINATE EXT REL 25 MG TABCR PO (10:00)
--- NOTE | 2020-06-26 14:24 | PM.IMPN ---
Progress Note: A&P Assessment and Plan (1) Near syncope: Code(s): R55 - Syncope and collapse Status: Acute Assessment and Plan: He noted lightheadedness with near syncope. He received gentle IV fluids which were discontinued 06/25/19 as he is tolerating PO intake well. Orthostatic BP is negative for orthostatic hypotension. TSH is normal at 0.554. Carotid doppler US demonstrates <50% stenosis. Echocardiogram demonstrates normal LV systolic function, biatrial dilation, tricuspid valve regurgitation, mild aortic sclerosis, trivial mitral regurgitation, moderate pulmonary hypertension, no intracardiac shunt. Telemetry shows known atrial fibrillation with rate generally well-controlled. Continue fall precautions (2) Parotid swelling: Code(s): R60.9 - Edema, unspecified Status: Acute Assessment and Plan: He reports intermittent fullness and what he believes is drainage in the left parotid region. It does feel mildly firm on exam. He also has dental disease on that side and was told he needs a root canal. Will order CT soft tissue neck for further evaluation (3) Numbness: Code(s): R20.0 - Anesthesia of skin Status: Acute Assessment and Plan: Stocking/glove distribution which suggests peripheral neuropathy. Vitamin B12 and folate are sufficient. HIV testing negative. Hemoglobin A1c is 5.5%. Neurology is consulted and following for further recommendations and management. MRI brain was performed and demonstrates no acute findings. There is evidence of small old lacunar infarct in the right peritrigonal white matter. He does drink alcohol so it is possible that this could be contributing. Additional consideration includes adverse medication reaction as he had an episode approximately 1 hour after taking his medications today. Symptoms have resolved at this time. He is not orthostatic on orthostatic BP reading. Encourage alcohol cessation Further input per neurology He may benefit from nerve conduction study outpatient per neurology I do not want to stop any of his medications at this time (4) A-fib: Qualifiers: Atrial fibrillation type: paroxysmal Qualified Code(s): I48.0 - Paroxysmal atrial fibrillation Code(s): I48.91 - Unspecified atrial fibrillation Status: Chronic Assessment and Plan: Chronic. Rate generally controlled. Telemetry was reviewed and demonstrates atrial fibrillation with episodes of bradycardia and pauses from 2-3 seconds and he also had an episode of sinus tachycardia when up walking. Continue metoprolol (5) Hypothyroid: Qualifiers: Hypothyroidism type: other Qualified Code(s): E03.8 - Other specified hypothyroidism Code(s): E03.9 - Hypothyroidism, unspecified Status: Chronic Assessment and Plan: TSH 06/25/19 is 0.554. He notes this was induced by amiodarone which he was on 2 years ago but has not been on thyroid replacement therapy for 2 years. Continue follow-up outpatient (6) BPH (benign prostatic hyperplasia): Qualifiers: Lower urinary tract symptom presence: unspecified whether lower urinary tract symptoms present Qualified Code(s): N40.0 - Benign prostatic hyperplasia without lower urinary tract symptoms Code(s): N40.0 - Benign prostatic hyperplasia without lower urinary tract symptoms Status: Chronic Assessment and Plan: Chronic with no acute issues. Continue flomax and finasteride (7) Bradycardia: Code(s): R00.1 - Bradycardia, unspecified Status: Acute Assessment and Plan: Bradycardia was noted on telemetry monitoring with occasional pause for 2-3 seconds. Metoprolol tartrate was listed on his medication list but he actually takes metoprolol succinate so this was changed to his regular regimen. Telemetry demonstrates intermittent atrial fibrillation. He had a few episodes of sinus tachycardia when
[2020-06-26] MEDS: METOPROLOL SUCCINATE EXT REL 100 MG TABCR PO (17:18)
[2020-06-26] MEDS: TAMSULOSIN HCL 0.4 MG CAPSULE PO (20:19)
[2020-06-27] VITALS (10 sets, daily range): BP systolic 133–153; BP diastolic 75–91; PULSE 63–91; RESP 18–20; TEMP 36.6–36.8; O2SAT 100
[2020-06-27] MEDS: FINASTERIDE 5 MG TABLET PO (09:54)
[2020-06-27] MEDS: METOPROLOL SUCCINATE EXT REL 25 MG TABCR PO (09:54)
[2020-06-27] MEDS: OMEGA 3 POLYUNSAT FATTY ACIDS 1 GM CAP PO (09:54)
[2020-06-27] MEDS: ASPIRIN 81 MG CHEWABLE TABLET PO (09:55)
[2020-06-27] MEDS: LOSARTAN POTASSIUM 100 MG TABLET PO (09:55)
[2020-06-27] MEDS: APIXABAN 5 MG TABLET PO (09:55)
[2020-06-27] MEDS: CHOLECALCIFEROL 1,000 UNITS TABLET 2000 UNITS PO (09:55)
--- NOTE | 2020-06-27 12:33 | WPDNEUROPN ---
Progress Note: A&P Assessment and Plan (1) Cervical stenosis of spinal canal: Code(s): M48.02 - Spinal stenosis, cervical region Status: Acute Additional Plan stable will need the follow-up for cervical stenosis though at present there is no need for surgical intervention but considering his symptomatology and findings on the MRI he will need the follow-up Review of Systems Review of Systems: All systems reviewed & are unremarkable except as noted in HPI and below Exam Const: General: cooperative Nutritional Appearance: average body habitus Limitations: no limitations HENMT: Ears: hearing grossly normal bilaterally General nose exam: Normal external nose present and No nasal discharge present Mouth: Yes Normal oral and palatal mucosa present Eyes: General: appearance normal, both eyes and all related structures Visual Yan: normal visual yan by confrontation Alignment and Position: alignment normal Eyelids: eyelids normal Conjunctivae: conjunctivae normal Sclera: sclerae normal Cornea: corneas normal Pupils: Equal, round and reactive pupils present EOM: EOMs intact bilaterally Neck: Neck: full ROM Resp: Auscultation: clear to auscultation bilaterally Cardio: Rhythm: abnormal rhythm GI: Auscultation: normal bowel sounds Skin: General skin exam: no rashes or lesions noted Neuro: General: oriented to person and oriented to place Cranial nerves: Yes CN's II-XII intact bilaterally Cognition (Neuro): normal cognition Speech: normal speech Gait exam (Neuro): Normal gait present Motor exam (neuro): 5/5 motor strength present throughout Sensory Exam: normal sensation Deep tendon reflexes (DTR's): Right triceps reflex intensity grade: 1+, Left triceps reflex intensity grade: 1+, Rt Biceps (C5, C6): 1+, Left biceps reflex intensity grade: 1+, Right brachioradialis reflex intensity grade: 1+, Left brachioradialis reflex intensity grade: 1+, Right patellar reflex intensity grade: 1+, Left patellar reflex intensity grade: 1+, Right ankle reflex intensity grade: 1+ and Left ankle reflex intensity grade: 1+ Extrem: General: full ROM Objective Data Vital Signs Vital Signs: Vital Signs - 24 hr 06/26/20 14:00 06/26/20 14:54 06/26/20 14:55 Temperature 36.0 C L Pulse Rate 88 Pulse Rate [Monitor] Respiratory Rate 20 Blood Pressure 149/79 H 136/80 141/75 H Pulse Oximetry 100 06/26/20 16:00 06/26/20 17:18 06/26/20 20:00 Temperature Pulse Rate 67 66 73 Pulse Rate [Monitor] 73 Respiratory Rate 18 Blood Pressure 148/75 H Pulse Oximetry 100 06/26/20 21:59 06/27/20 00:00 06/27/20 04:00 Temperature 36.4 C Pulse Rate 61 75 76 Pulse Rate [Monitor] 75 Respiratory Rate 18 Blood Pressure 160/90 H Pulse Oximetry 100 06/27/20 06:00 06/27/20 09:54 Temperature 36.8 C Pulse Rate 63 82 Pulse Rate [Monitor] Respiratory Rate 18 Blood Pressure 151/91 H Pulse Oximetry 100 Intake/Output Intake/Output: Intake & Output 06/24/20 06/25/20 06/26/20 06/27/20 23:59 23:59 23:59 23:59 Intake Total 2220 2310 790 Output Total 1945 2200 800 Balance 275 110 -10 Meds/Results Medications: Active Medications Generic Name Dose Route Start Last Admin Trade Name César PRN Reason Stop Dose Admin Acetaminophen 650 mg 06/24/20 23:11 Acetaminophen 325 Mg Tablet PO Q4H PRN Mild Pain (1-3) or Fever Apixaban 5 mg 06/24/20 23:45 06/27/20 09:55 Apixaban 5 Mg Tablet PO 5 mg Q12HR JEREMIAH Administration Aspirin 81 mg 06/25/20 08:00 06/27/20 09:55 Aspirin 81 Mg Chewable Tablet PO 81 mg DAILY@0800 JEREMIAH Administration Finasteride 5 mg 06/25/20 09:00 06/27/20 09:54 Finasteride 5 Mg Tablet PO 5 mg DAILY JEREMIAH Administration Fish Oil 1 gm 06/25/20 09:00 06/27/20 09:54 [place] 3 Polyunsat Fatty Acids 1 Gm Cap PO 1 gm DAILY JEREMIAH Administration Losartan Potassium 100 mg 06/25/20 09:00 06/27/20 09:55 Losartan Potassium
--- NOTE | 2020-06-27 14:01 | PM.DS ---
DS: Admitting Diagnosis Admitting Diagnosis Admitting Diagnosis: Numbness/tingling DS: Discharge Diagnosis Discharge Diagnosis (1) Near syncope: Code(s): R55 - Syncope and collapse Status: Acute Assessment and Plan: He noted lightheadedness with near syncope. He received gentle IV fluids which were discontinued 06/25/19 as he began tolerating PO intake well. Orthostatic BP is negative for orthostatic hypotension. TSH is normal at 0.554. Carotid doppler US demonstrates <50% stenosis. Echocardiogram demonstrated normal LV systolic function, biatrial dilation, tricuspid valve regurgitation, mild aortic sclerosis, trivial mitral regurgitation, moderate pulmonary hypertension, no intracardiac shunt. Telemetry showed known atrial fibrillation with rate generally well-controlled. Suspect vasovagal etiology. Fall precautions discussed. (2) Numbness: Code(s): R20.0 - Anesthesia of skin Status: Acute Assessment and Plan: Stocking/glove distribution which suggests peripheral neuropathy. Vitamin B12 and folate are sufficient. HIV testing negative. Hemoglobin A1c is 5.5%. Neurology was consulted and following for further recommendations and management. MRI brain was performed and demonstrated no acute findings. There is evidence of small old lacunar infarct in the right peritrigonal white matter. He does drink alcohol so it is possible that this could have contributed to symptoms. He was not orthostatic. Symptoms resolved. Cervical MRI showed severe cervical stenosis which may contribute to symptoms. He will need to follow up with neurology as an outpatient and will benefit from nerve conduction studies. He will also need to follow-up with primary care provider. (3) Parotid swelling: Code(s): R60.9 - Edema, unspecified Status: Acute Assessment and Plan: He reports intermittent fullness and what he believes is drainage in the left parotid region. He reports history of dental infection and describes a pocket of one of his upper molars. He reports he requires a root canal and needs to follow up with his dentist. He had a soft tissue/neck [employer] which showed normal parotid glands, no evidence of sialolith, or abscess. He will need to follow up with his dentist immediately and had already called to get an appointment prior to being discharged. No signs/symptoms of infection and no indication for antibiotics. (4) A-fib: Qualifiers: Atrial fibrillation type: paroxysmal Qualified Code(s): I48.0 - Paroxysmal atrial fibrillation Code(s): I48.91 - Unspecified atrial fibrillation Status: Chronic Assessment and Plan: Chronic. Rate generally controlled. Telemetry was reviewed and demonstrates atrial fibrillation with episodes of bradycardia and pauses from 2-3 seconds and he also had an episode of sinus tachycardia when up walking. It was later discovered that his home metoprolol was listed as metoprolol tartrate but he takes metoprolol succinate. Heart rate became better controlled after resuming his normal home regimen. Metoprolol succinate will be continued along with Eliquis. (5) Hypothyroid: Qualifiers: Hypothyroidism type: other Qualified Code(s): E03.8 - Other specified hypothyroidism Code(s): E03.9 - Hypothyroidism, unspecified Status: Chronic Assessment and Plan: TSH 06/25/19 is 0.554 wnl. He notes this was induced by amiodarone which he was on 2 years ago but has not been on thyroid replacement therapy for 2 years. Continue follow-up outpatient (6) BPH (benign prostatic hyperplasia): Qualifiers: Lower urinary tract symptom presence: unspecified whether lower urinary tract symptoms present Qualified Code(s): N40.0 - Benign prostatic hyperplasia without lower urinary tract symptoms Code(s): N40.0 - Benign prostatic hyperplasia without lower urinary tract symptoms Status: Chronic Assessment and Plan:
[2020-06-27] MEDS: METOPROLOL SUCCINATE EXT REL 100 MG TABCR PO (17:30)
== END 2020-06-27 17:45 | disposition home or self-care (01) ==
LOC: ANHED 19:42 → ANH3MEDSUR 20:07
PROVIDERS: Physician Assistant; Admitting Provider Family Medicine; Emergency Provider Emergency Medicine; Visit Provider Physician Assistant
DX: R55 Syncope and collapse (principal); G45.9 Transient cerebral ischemic attack, unspecified; R20.0 Anesthesia of skin; M48.02 Spinal stenosis, cervical region; R00.1 Bradycardia, unspecified; R60.9 Edema, unspecified; I48.91 Unspecified atrial fibrillation; I10 Essential (primary) hypertension; E03.9 Hypothyroidism, unspecified; N40.0 Benign prostatic hyperplasia without lower urinary tract symptoms; G47.33 Obstructive sleep apnea (adult) (pediatric); Z86.73 Personal history of transient ischemic attack (TIA), and cerebral infarction without residual deficits; M19.90 Unspecified osteoarthritis, unspecified site; Z96.652 Presence of left artificial knee joint; Z79.01 Long term (current) use of anticoagulants; Z20.822 Contact with and (suspected) exposure to COVID-19; Z87.891 Personal history of nicotine dependence; Z72.89 Other problems related to lifestyle; Z79.899 Other long term (current) drug therapy
CPT/HCPCS: 36415; 70450; 70490; 70553; 71045; 72141; 80048; 80053; 80076; 83036; 83735; 84443; 84484; 85025; 85610; 85730; 86703; 93005; 93306; 93880; 93970; 96375; 97161; 99285; A9270; A9577; C9803; G0378; G0432; U0003

== ENCOUNTER 2021-10-31 11:35 | Emergency (ER) | payer MEDICARE, SELFPAY ==
[2021-10-31] VITALS (10 sets, daily range): BP systolic 136–155; BP diastolic 74–96; PULSE 61–81; RESP 16–23; TEMP 36.4; O2SAT 97–100
--- NOTE | ~2021-10-31 | XR_ITS ---
EXAMINATION: XR chest 1V portable INDICATION: Dizziness TECHNIQUE: Portable AP chest at 1309 hours COMPARISON: 06/24/2020 FINDINGS: The right lung base is excluded from the examination. The lungs are free of acute opacities . There is no pleural effusion or pneumothorax. The heart size is upper limits of normal for techniqu e. IMPRESSION: 1. No acute cardiopulmonary abnormality. Reviewed, dictated and finalized at location A.
--- NOTE | 2021-10-31 12:36 | PC.NURSE ---
PT REPORTS UPON WAKING THIS AM HE HAD TINGLING TO BILATERAL HANDS. REPORTS S/S ARE IMPROVING
--- NOTE | 2021-10-31 12:51 | ECG_ITS ---
Measurements Intervals [place] Rate: 71 P: HI: 0 QRS: -4 QRSD: 90 T: 23 QT: 390 QTc: 424 Interpretive Statements ATRIAL FIBRILLATION CANNOT RULE OUT SEPTAL INFARCT, AGE INDETERMINATE BASELINE ARTIFACT- I, II, AVR, AVL, V1 ABNORMAL ECG Electronically Signed On 10-31-2021 13:19:50 CDT by Luis Enrique Zaragoza D.O.
--- NOTE | 2021-10-31 12:53 | ED.NEUROSD ---
HPI - Neuro Symptoms/Deficit General Chief Complaint: Neuro Symptoms/Deficit Stated Complaint: TINGLING ARMS Time Seen by Provider: 10/31/21 12:37 Source: patient Mode of arrival: ambulatory Limitations: no limitations History of Present Illness HPI Narrative: Pt was sitting at a local oil change facility when he felt warm and flushed and felt lightheaded like he was about to pass out. Pt did not lose consciousness totally and eventually the lightheaded spell went away but noticed some numbness in his fingertips bilaterally. This sensation has nearly resolved. Pt denies CP. Pt has some intermittent SOB on walking up stairs but no CP. The SOB resolves with rest and he isn't SOB with routine daily activities. Pt has some intermittent b/l calf pain but not now. Pt also has some mild left ear and upper dental pain. Related Data Home Medications Medication Instructions Recorded Confirmed Eliquis 5 mg PO BID 06/24/20 06/24/20 Glucosamine Chondroitin 3 cap PO DAILY 06/24/20 06/24/20 finasteride 5 mg PO DAILY 06/24/20 06/24/20 ketoconazole See Rx Instructions .ROUTE .COMPLEX 06/24/20 06/24/20 losartan 100 mg PO DAILY 06/24/20 06/24/20 lutein 20 mg PO DAILY 06/24/20 06/24/20 metoprolol succinate 100 mg PO QPM 06/24/20 06/24/20 omega-3 fatty acids [Fish Oil 1,000 mg PO DAILY 06/24/20 06/24/20 Concentrate] tamsulosin 0.4 mg PO HS 06/24/20 06/24/20 cholecalciferol (vitamin D3) 50 mcg PO DAILY 06/25/20 06/25/20 Allergies Allergy/AdvReac Type Severity Reaction Status Date / Time Digitalis Glycosides Allergy Unknown Verified 06/24/20 17:23 shellfish derived Allergy Hives Verified 06/24/20 23:11 tree and shrub pollen Allergy Sneezing Verified 06/24/20 23:11 warfarin [From Coumadin] Allergy Rash Verified 08/28/19 19:22 Review of Systems Review of Systems: All systems reviewed & are unremarkable except as noted in HPI and below PMFSH Past Medical History Medical History A-fib Arthritis BPH (benign prostatic hyperplasia) CVA (cerebral vascular accident) HTN (hypertension) with goal to be determined Hypothyroid Surgical History Surgical History History of total left knee replacement Social History Social History Smoking packs per day: 1 Smoking cigarettes per day: 20.0 Years smoked: 5 Smoking pack-years: 5.00 Smoking status: Former smoker Tobacco type: cigarettes Alcohol intake: current Drinks per week: 12 Substance use: never Gender identity (if verbalized by the patient): Male Spiritual care concerns: No Exam Const: General: no acute distress Orientation/consciousness: patient oriented x3 HENMT: Head: normal to inspection Ears: TM's normal bilaterally Teeth and gingiva: dentition normal (no abscess but tender to left upper molars) Eyes: Conjunctivae: conjunctivae normal EOM: EOMs intact bilaterally Neck: Neck: normal visual inspection, no lymphadenopathy and no meningeal signs Resp: Effort & Inspection: normal respiratory effort Auscultation: clear to auscultation bilaterally Cardio: Rate: regular rate Rhythm: regular rhythm GI: GI Palp: Yes Soft to palpation Auscultation: normal bowel sounds Skin: General skin exam: normal color Neuro: General: patient oriented x3 and moves all extremities Extrem: General: normal to inspection Psych: Appearance: grossly normal Mental Status: mental status grossly normal Thought content: Yes Normal thought content present Course Vital Signs Vital signs: Vital Signs Temperature 97.6 F 10/31/21 11:58 Pulse Rate 80 10/31/21 11:58 Respiratory Rate 16 10/31/21 11:58 Blood Pressure 137/83 10/31/21 11:58 Pulse Oximetry 100 10/31/21 11:58 Temperature 97.6 F 10/31/21 11:58 Pulse Rate 63 10/31/21 13:33 Respiratory Rate 20 10/31/21 13:33 Blood Pressure 136/74
[2021-10-31 13:14] LABS: Basophils Percent Auto 0.5 % (0.2-1.2); Eosinophils Absolute Auto 0.1 K/mm3 (0-0.3); Eosinophils Percent Auto 1.4 % (0-4.4); Hematocrit 39.8 % (42.0-52.0); Hemoglobin 12.8 g/dL (14.0-18.0); Immature Granulocyte Absolute 0.02 K/mm3 (0.00-0.031); Immature Granulocyte Percent A 0.5 % (0-0.5); Lymphocytes Absolute Auto 1.42 K/mm3 (0.9-3.2); Mean Corpuscular HGB Conc 32.2 g/dl (32-36); Mean Corpuscular Hemoglobin 32.5 pg (26-34); Mean Platelet Volume 10.7 fl (7.4-10.4); Monocytes Absolute Auto 0.5 K/mm3 (0.1-0.6); Monocytes Percent Auto 11.3 % (2.6-8.5); Neutrophils Absolute Auto 2.4 K/mm3 (1.3-6.7); Neutrophils Percent Auto 54.3 % (45.5-73.1); Platelet Count Result 130 k/mm3 (150-375); Red Blood Count 3.94 M/mm3 (4.6-6.20); Red Cell Distribution Width 15.4 % (11.5-14.5); White Blood Count 4.4 K/mm3 (4.5-10.0)
[2021-10-31 13:25] LABS: Alanine Aminotransferase 35 U/L (6-50); Alkaline Phosphatase 85 U/L (38-126); Anion Gap 5 mmol/L (8-16); Aspartate Amino Transferase 42 U/L (17-59); Bilirubin,Total 1.2 mg/dL (0.2-1.3); Blood Urea Nitrogen 22 mg/dL (9-20); Calcium 8.6 mg/dL (8.4-10.2); Carbon Dioxide 28 mmol/L (22-30); Chloride 102 mmol/L (98-107); Estimated CRCL calculation 89 ml/min; Estimated Glomerular Filt Rate > 60; Glucose 111 mg/dL (65-110); Magnesium 1.8 mg/dL (1.6-2.3); Potassium 4.2 mmol/L (3.4-5.0); Sodium 135 mmol/L (137-145)
[2021-10-31 13:27] LABS: INR 1.2; Partial Thromboplastin Time 32.6 SECONDS (22.3-36.8); Prothrombin Time 14.9 Seconds (11.1-14.7)
[2021-10-31 13:36] LABS: NT Pro B Type Natriuretic Pept 161 pg/mL (5-100); Troponin I < 0.012 ng/mL (0.000-0.034)
== END 2021-10-31 14:19 | disposition home or self-care (01) ==
PROVIDERS: Emergency Provider Emergency Medicine
DX: R55 Syncope and collapse (principal); I48.91 Unspecified atrial fibrillation; M19.90 Unspecified osteoarthritis, unspecified site; I10 Essential (primary) hypertension; N40.0 Benign prostatic hyperplasia without lower urinary tract symptoms; E03.9 Hypothyroidism, unspecified; Z86.73 Personal history of transient ischemic attack (TIA), and cerebral infarction without residual deficits; Z79.01 Long term (current) use of anticoagulants; Z96.652 Presence of left artificial knee joint; R06.02 Shortness of breath; Z87.891 Personal history of nicotine dependence; R94.31 Abnormal electrocardiogram [ECG] [EKG]
CPT/HCPCS: 36415; 71045; 80053; 83735; 83880; 84484; 85025; 85610; 85730; 93005; 99284

== ENCOUNTER 2021-11-16 09:37 | Emergency (ER) | payer MEDICARE, SELFPAY ==
[2021-11-16] VITALS (19 sets, daily range): BP systolic 118–160; BP diastolic 72–120; PULSE 67–95; RESP 14–24; O2SAT 97–99
--- NOTE | ~2021-11-16 | XR_ITS ---
EXAMINATION: XR chest 1V DATE: 11/16/2021 12:04 INDICATION: Dizziness. Sinus pain. Weakness. TECHNIQUE: A single frontal view of the chest was obtained. COMPARISON: Chest single view 10/31/2021, chest CT 08/28/2019 FINDINGS: The chest demonstrates clear lungs without pneumonia, pleural effusion, or pneumothorax. Th e heart size is normal. IMPRESSION: 1. No acute cardiopulmonary disease. Reviewed, dictated and finalized at location A.
--- NOTE | ~2021-11-16 | CT_ITS ---
EXAMINATION: CT brain wo con DATE: 11/16/2021 11:58 INDICATION: Dizziness. Weakness. TECHNIQUE: Computed tomography (CT) of the head was performed without intravenous contrast. The mA wa s adjusted according to patient size. Iterative reconstruction technique was employed. The dose-lengt h product was 605.33 mGy-cm. COMPARISON: Head CT 06/24/2020, brain MRI 06/25/2020 FINDINGS: There is no intracranial hemorrhage, acute infarction, or abnormal intracranial mass lesion . There are scattered areas of low attenuation in the cerebral white matter, which is within normal l imits for the patient's age. The ventricles are normal in size. There is mucosal thickening in the pa ranasal sinuses and dependent fluid in the maxillary sinuses. The mastoid air cells are normal. There are likely changes of ocular lens replacement surgeries. IMPRESSION: 1. Normal aging brain. Reviewed, dictated and finalized at location A. IMPRESSION: 1. Normal aging brain.
--- NOTE | 2021-11-16 09:48 | ECG_ITS ---
Measurements Intervals [place] Rate: 91 P: IN: 0 QRS: 0 QRSD: 89 T: 52 QT: 331 QTc: 409 Interpretive Statements ATRIAL FIBRILLATION CANNOT RULE OUT SEPTAL INFARCT, AGE INDETERMINATE BASELINE ARTIFACT- I, II, III, AVR, AVL, AVF ABNORMAL ECG Electronically Signed On 11-16-2021 17:10:05 CDT by Luis Enrique Zaragoza D.O.
--- NOTE | 2021-11-16 10:04 | ED.DIZZY ---
HPI - Dizziness General Chief Complaint: Dizziness Stated Complaint: Multiple Complaints Time Seen by Provider: 11/16/21 10:01 Source: patient Mode of arrival: ambulatory Limitations: no limitations History of Present Illness HPI Narrative: Patient is 81 years old white female lives alone, came from home complaining of sudden onset of dizziness, general weakness, heaviness of the lower extremities started at 7:30 AM. Associated with numbness at the tips of the fingers bilaterally, his symptoms are improving on arrival to the ED. Patient was seen at urgent care 5 days ago for runny nose, sneezing, coughing, postnasal discharge, body aches and fever up to 100.1, was tested negative for COVID and influenza and was discharged home with viral infection. Patient went to a wedding with a lot of people on November 03. Currently patient complaining of weakness all over. He denies any fever, chills, chest pain, shortness of breath, headache, focal neurodeficit. Patient could not sleep last night because of the coughing and runny nose leaking at the back of his throat. Related Data Home Medications Medication Instructions Recorded Confirmed apixaban 5 mg tablet (Eliquis) 5 mg PO BID 06/24/20 06/24/20 finasteride 5 mg tablet 5 mg PO DAILY 06/24/20 06/24/20 glucosamine sulf dipot 3 cap PO DAILY 06/24/20 06/24/20 chlr,msm,chond 550 mg-C 30 mg-keshia 1 mg capsule (Glucosamine Chondroitin) ketoconazole 2 % shampoo See Rx Instructions .Route .COMPLEX 06/24/20 06/24/20 losartan 100 mg tablet 100 mg PO DAILY 06/24/20 06/24/20 lutein 20 mg capsule 20 mg PO DAILY 06/24/20 06/24/20 metoprolol succinate 100 mg 100 mg PO QPM 06/24/20 06/24/20 tablet,extended release 24 hr omega-3 fatty acids 1,000 mg 1,000 mg PO DAILY 06/24/20 06/24/20 capsule (Fish Oil Concentrate) tamsulosin 0.4 mg capsule 0.4 mg PO HS 06/24/20 06/24/20 cholecalciferol (vitamin D3) 25 50 mcg PO DAILY 06/25/20 06/25/20 mcg (1,000 unit) tablet Allergies Allergy/AdvReac Type Severity Reaction Status Date / Time Digitalis Glycosides Allergy Unknown Verified 11/16/21 09:56 shellfish derived Allergy Hives Verified 11/16/21 09:56 tree and shrub pollen Allergy Sneezing Verified 11/16/21 09:56 warfarin [From Coumadin] Allergy Rash Verified 11/16/21 09:56 Review of Systems Review of Systems: All systems reviewed & are unremarkable except as noted in HPI and below PMFSH Past Medical History Medical History A-fib Arthritis BPH (benign prostatic hyperplasia) CVA (cerebral vascular accident) HTN (hypertension) with goal to be determined Hypothyroid Surgical History Surgical History History of total left knee replacement Social History Social History Smoking packs per day: 1 Smoking cigarettes per day: 20.0 Years smoked: 5 Smoking pack-years: 5.00 Smoking status: Former smoker Tobacco type: cigarettes Alcohol intake: current Drinks per week: 12 Substance use: never Gender identity (if verbalized by the patient): Male Spiritual care concerns: No Exam Narrative: General appearance: Well-developed, well-nourished, daughter at bedside Skin: Normal color Head: Normocephalic, nontraumatic Eyes: Clear conjunctiva ENT: Oropharynx normal, ears normal, nose normal Neck: Supple, nontender Chest and respiratory: Airway patent, no respiratory distress, no accessory muscle use Heart: Regular rate/rhythm Abdomen: Soft, nontender, no organomegaly, quiet bowel sounds Vascular: Normal peripheral pulses, normal capillary refill. Musculoskeletal: Normal range of motion, nontender back Neurologic: Alert and oriented ?3, [employer] is normal as tested, no gross motor deficit
[2021-11-16 10:08] LABS: Basophils Percent Auto 0.4 % (0.2-1.2); Eosinophils Absolute Auto 0.1 K/mm3 (0-0.3); Eosinophils Percent Auto 1.3 % (0-4.4); Hematocrit 42.2 % (42.0-52.0); Hemoglobin 13.8 g/dL (14.0-18.0); Immature Granulocyte Absolute 0.03 K/mm3 (0.00-0.031); Immature Granulocyte Percent A 0.4 % (0-0.5); Lymphocytes Absolute Auto 1.68 K/mm3 (0.9-3.2); Lymphocytes Percent Auto 24.7 % (18.3-44.2); Mean Corpuscular HGB Conc 32.7 g/dl (32-36); Mean Corpuscular Hemoglobin 33.1 pg (26-34); Mean Corpuscular Volume 101.2 fl (80-100); Mean Platelet Volume 10.6 fl (7.4-10.4); Monocytes Absolute Auto 0.7 K/mm3 (0.1-0.6); Monocytes Percent Auto 9.9 % (2.6-8.5); Neutrophils Absolute Auto 4.3 K/mm3 (1.3-6.7); Neutrophils Percent Auto 63.3 % (45.5-73.1); Platelet Count Result 201 k/mm3 (150-375); Red Blood Count 4.17 M/mm3 (4.6-6.20); Red Cell Distribution Width 14.3 % (11.5-14.5); White Blood Count 6.8 K/mm3 (4.5-10.0)
[2021-11-16 10:21] LABS: Alanine Aminotransferase 41 U/L (6-50); Albumin Level 4.5 g/dL (3.5-5.1); Alkaline Phosphatase 146 U/L (38-126); Anion Gap 8 mmol/L (8-16); Aspartate Amino Transferase 41 U/L (17-59); Bilirubin,Total 0.7 mg/dL (0.2-1.3); Blood Urea Nitrogen 17 mg/dL (9-20); Calcium 8.9 mg/dL (8.4-10.2); Carbon Dioxide 30 mmol/L (22-30); Chloride 96 mmol/L (98-107); Estimated CRCL calculation 78 ml/min; Estimated Glomerular Filt Rate > 60; Glucose 154 mg/dL (65-110); Potassium 4.5 mmol/L (3.4-5.0); Sodium 134 mmol/L (137-145)
[2021-11-16 11:36] LABS: SARS-CoV-2 RNA PCR Negative
[2021-11-16 12:19] LABS: Troponin I < 0.012 ng/mL (0.000-0.034)
[2021-11-16 13:12] LABS: Add Urine Microscopic? NO; Appearance Urine Clear (Clear); Bilirubin Urine Negative (Negative); Blood Urine Negative (Negative); Color Urine Yellow (Yellow); Glucose Urine UA Negative (Negative); Ketones Urine Negative (Negative); Leukocyte Esterase Ur Negative LEU/UL (Negative); Nitrate Urine Negative (Negative); Protein Urine Negative (Negative); Specific Grav Ur 1.015 (1.001-1.035); Urobilinogen Urine 0.2 mg/dL (<2.0)
== END 2021-11-16 13:52 | disposition home or self-care (01) ==
PROVIDERS: Emergency Provider Emergency Medicine
DX: B34.9 Viral infection, unspecified (principal); R42 Dizziness and giddiness; R53.1 Weakness; I48.91 Unspecified atrial fibrillation; I10 Essential (primary) hypertension; N40.0 Benign prostatic hyperplasia without lower urinary tract symptoms; M19.90 Unspecified osteoarthritis, unspecified site; E03.9 Hypothyroidism, unspecified; Z86.73 Personal history of transient ischemic attack (TIA), and cerebral infarction without residual deficits; Z79.01 Long term (current) use of anticoagulants; Z96.652 Presence of left artificial knee joint; Z87.891 Personal history of nicotine dependence
CPT/HCPCS: 36415; 70450; 71045; 80053; 81003; 84484; 85025; 93005; 99284; C9803; U0003; U0005

== ENCOUNTER 2022-10-12 21:43 | Emergency (ER) | payer MEDICARE, SELFPAY ==
--- NOTE | ~2022-10-12 | CT_ITS ---
EXAMINATION: CTA abdomen pelvis DATE: 10/13/2022 00:25 INDICATION: Abdominal pain, concern for mesenteric ischemia TECHNIQUE: Computed tomographic angiography (CTA) of the abdomen and pelvis was performed with 100 mL Omnipaque-350 intravenous contrast. Maximum intensity projection 3D-reconstructions of the aorta and other arteries were constructed by the technologist on a separate workstation. The dose-length produ ct (DLP) was 1461.99 mGy-cm. Automated exposure control and iterative reconstruction technique were e mployed. COMPARISON: 08/28/2019 FINDINGS: Minimal dependent atelectasis is present in the lung bases. The heart size is normal. A chr onic 6 mm nodule of the left lower lobe is consistent with old granulomatous disease. The liver, sple en, pancreas, gallbladder, and adrenal glands are normal. The kidneys are unremarkable. No pathologic ally enlarged abdominal or pelvic lymph nodes are identified. No free intraperitoneal gas or evidence of bowel obstruction. The appendix is normal. Colonic diverticulosis is present without evidence of diverticulitis. There is mild circumferential wall thickening of the urinary bladder. Again noted is a diverticulum of the right posterolateral bladder wall. There is severe lumbar spondylosis. There is no aneurysm or dissection of the abdominal aorta. Calcified atherosclerosis is noted in the aorta. The celiac axis, superior mesenteric artery, and inferior mesenteric artery are normal at thei r origins. There are single renal arteries. There is calcified atherosclerosis without hemodynamicall y significant stenosis of the common iliac and internal iliac arteries. IMPRESSION: 1. No aneurysm or dissection of the abdominal aorta. No large vessel occlusion. 2. Mild wall thickening of the urinary bladder which could be due to cystitis or chronic obstruction. Reviewed, dictated and finalized at location A. IMPRESSION: 1. No aneurysm or dissection of the abdominal aorta. No large vessel occlusion. 2. Mild wall thickening of the urinary bladder which could be due to cystitis o r chronic obstruction.
[2022-10-12 21:45] VITALS: BP 179/96; PULSE 84; RESP 18; TEMP 36.6; O2SAT 100
[2022-10-12 23:10] VITALS: BP 141/84; PULSE 73; O2SAT 97
[2022-10-12 23:21] LABS: Appearance Urine Clear (Clear); Bilirubin Urine Negative (Negative); Blood Urine Negative (Negative); Color Urine Dark Yellow (Yellow); Glucose Urine UA Negative (Negative); Ketones Urine Negative (Negative); Leukocyte Esterase Ur Negative LEU/UL (Negative); Nitrate Urine Negative (Negative); Protein Urine Negative (Negative); Specific Grav Ur 1.011 (1.001-1.035); Urobilinogen Urine 0.2 mg/dL (<2.0); pH Urine 6.5 (5.0-9.0)
[2022-10-12 23:22] LABS: Basophils Percent Auto 0.9 % (0.2-1.2); Eosinophils Absolute Auto 0.1 K/mm3 (0-0.3); Eosinophils Percent Auto 1.6 % (0-4.4); Hematocrit 39.1 % (42.0-52.0); Hemoglobin 13.3 g/dL (14.0-18.0); Immature Granulocyte Absolute 0.01 K/mm3 (0.00-0.031); Immature Granulocyte Percent A 0.2 % (0-0.5); Immature Platelet Fraction Pct 4.8 % (0.9-11.2); Lymphocytes Absolute Auto 1.35 K/mm3 (0.9-3.2); Lymphocytes Percent Auto 30.9 % (18.3-44.2); Mean Corpuscular Hemoglobin 34.2 pg (26-34); Mean Corpuscular Volume 100.5 fl (80-100); Mean Platelet Volume 10.7 fl (7.4-10.4); Monocytes Absolute Auto 0.6 K/mm3 (0.1-0.6); Monocytes Percent Auto 12.6 % (2.6-8.5); Neutrophils Absolute Auto 2.4 K/mm3 (1.3-6.7); Neutrophils Percent Auto 53.8 % (45.5-73.1); Platelet Count Result 141 k/mm3 (150-375); Red Blood Count 3.89 M/mm3 (4.6-6.20); White Blood Count 4.4 K/mm3 (4.5-10.0)
[2022-10-12 23:31] VITALS: BP 163/105; PULSE 79; O2SAT 99
[2022-10-12 23:36] LABS: Alanine Aminotransferase 35 U/L (6-50); Albumin Level 4.2 g/dL (3.5-5.1); Alkaline Phosphatase 81 U/L (38-126); Anion Gap 5 mmol/L (8-16); Aspartate Amino Transferase 39 U/L (17-59); Blood Urea Nitrogen 17 mg/dL (9-20); Carbon Dioxide 29 mmol/L (22-30); Chloride 99 mmol/L (98-107); Estimated Glomerular Filt Rate > 60; Glucose 99 mg/dL (65-110); Potassium 4.1 mmol/L (3.4-5.0); Sodium 133 mmol/L (137-145)
--- NOTE | 2022-10-12 23:42 | ED.ABDPAIN ---
HPI - Abdominal Pain General Chief Complaint: Abdominal Pain Stated Complaint: abd pain Time Seen by Provider: 10/12/22 23:03 History of Present Illness HPI narrative: 82-year-old male presents with right lower quadrant pain. Per patient for the last week he has been having intermittent right lower quadrant abdominal pain rating to the right flank, denied trauma, or any associated factors. This continues to bother him so he presents to the ED for further evaluation. He denied fevers, chills, nausea, vomiting, dysuria, hematuria, hematochezia, melena, chest pain, shortness of breath, sick contact. He reports passing flatus. Past medical history: Atrial fibrillation, hypertension Past surgical history: Denied Medication: Apixaban, finasteride, losartan, metoprolol, amlodipine Allergies: No known drug allergies Social: Denies smoking, drugs, alcohol Related Data Home Medications Medication Instructions Recorded Confirmed apixaban 5 mg tablet (Eliquis) 5 mg PO BID 06/24/20 06/24/20 finasteride 5 mg tablet 5 mg PO DAILY 06/24/20 06/24/20 glucosamine sulf dipot 3 cap PO DAILY 06/24/20 06/24/20 chlr,msm,chond 550 mg-C 30 mg-keshia 1 mg capsule (Glucosamine Chondroitin) ketoconazole 2 % shampoo See Rx Instructions .Route .COMPLEX 06/24/20 06/24/20 losartan 100 mg tablet 100 mg PO DAILY 06/24/20 06/24/20 lutein 20 mg capsule 20 mg PO DAILY 06/24/20 06/24/20 metoprolol succinate 100 mg 100 mg PO QPM 06/24/20 06/24/20 tablet,extended release 24 hr omega-3 fatty acids 1,000 mg 1,000 mg PO DAILY 06/24/20 06/24/20 capsule (Fish Oil Concentrate) tamsulosin 0.4 mg capsule 0.4 mg PO HS 06/24/20 06/24/20 cholecalciferol (vitamin D3) 25 50 mcg PO DAILY 06/25/20 06/25/20 mcg (1,000 unit) tablet amlodipine 5 mg tablet mg 10/13/22 metoprolol succinate 25 mg mg PO 10/13/22 tablet,extended release 24 hr Allergies Allergy/AdvReac Type Severity Reaction Status Date / Time Digitalis Glycosides Allergy Unknown Verified 10/12/22 23:47 shellfish derived Allergy Hives Verified 10/12/22 23:47 tree and shrub pollen Allergy Sneezing Verified 10/12/22 23:47 warfarin [From Coumadin] Allergy Rash Verified 10/12/22 23:47 Review of Systems Review of Systems: See [facility] Past Medical History Medical History A-fib Arthritis BPH (benign prostatic hyperplasia) CVA (cerebral vascular accident) HTN (hypertension) with goal to be determined Hypothyroid Surgical History Surgical History History of total left knee replacement Social History Social History Smoking packs per day: 1 Smoking cigarettes per day: 20.0 Years smoked: 5 Smoking pack-years: 5.00 Smoking status: Former smoker Tobacco type: cigarettes Alcohol intake: current Drinks per week: 12 Substance use: never Gender identity (if verbalized by the patient): Male Spiritual care concerns: No Exam Narrative: APPEARANCE: Alert, calm and cooperative, no acute distress, phonating, sitting comfortably during visit HEAD: atraumatic EYES: Pupils equal round an reactive to light, extra ocular movements intact, no conjunctival injection NOSE: Normal no drainage NECK: Supple, without meningismus RESPIRATORY: Lungs clear to auscultation bilaterally, no wheezes/rales/rhonchi, breathing comfortably CARDIOVASCULAR: Regular rate and rhythm, no visible jugular venous distension ABDOMINAL: Soft, nontender, nondistended, no guarding, no rebound/peritoneal signs, no costovertebral tenderness to palpation BACK: no midline tenderness to palpation, no step offs EXTREMITIES: No edema, palpable peripheral pulses, warm, well perfused, no tenderness to bilateral calves. NEURO: Alert, moving all extremities symmetrically, ambulating with steady gait SKIN:: Warm, dry. Normal color PSYCHIATRIC: Normal affect/mood
[2022-10-12 23:43] VITALS: BP 163/105; PULSE 72; RESP 18; O2SAT 98
[2022-10-12 23:44] LABS: Add Urine Microscopic? NO
[2022-10-12 23:45] VITALS: O2SAT 99
[2022-10-13 00:17] VITALS: O2SAT 99
[2022-10-13 00:30] VITALS: O2SAT 99
[2022-10-13 00:45] VITALS: O2SAT 100
[2022-10-13 01:15] LABS: Lactic Acid Reflex 0.8 mmol/L (0.7-2.0)
[2022-10-13 01:45] VITALS: BP 147/86; PULSE 78; RESP 18; O2SAT 99
== END 2022-10-13 01:45 | disposition home or self-care (01) ==
PROVIDERS: Emergency Medicine; Emergency Provider Emergency Medicine
DX: R10.31 Right lower quadrant pain (principal); I48.91 Unspecified atrial fibrillation; I10 Essential (primary) hypertension; N40.0 Benign prostatic hyperplasia without lower urinary tract symptoms; E03.9 Hypothyroidism, unspecified; M19.90 Unspecified osteoarthritis, unspecified site; Z86.73 Personal history of transient ischemic attack (TIA), and cerebral infarction without residual deficits; Z96.652 Presence of left artificial knee joint; Z79.01 Long term (current) use of anticoagulants
CPT/HCPCS: 36415; 74174; 80053; 81003; 83605; 85025; 85055; 99284; Q9967